=== PATIENT | male | born 1975 | race Asian ===

== ENCOUNTER 2016-12-10 21:17 | Emergency (ER) | payer OTHER ==
[~2016-12-10 21:17] MED LIST: AMOXIL 875 MG875 MG PO; CYCLOBENZAPRINE10 M1 PO; FLEXERIL10 MG PO; IBUPROFEN800 M1 PO; MOTRIN 600 MG600 MG PO; TESSALON PERLE100 MG PO
[2016-12-10 21:23] VITALS: BP 151/92
--- NOTE | 2016-12-10 21:36 | ED GENERAL ADULT ---
See Addendum History of Present Illness General Chief Complaint: General Adult Stated Complaint: PT GOT STUCK WITH A NEEDLE IN PT ROOM Source: patient Exam Limitations: no limitations Vital Signs & Intake/Output Vital Signs & Intake/Output Vital Signs Date Time Temp Pulse Resp B/P B/P Pulse O2 O2 Flow FiO2 Mean Ox Delivery Rate 12/10 2122 97.9 88 20 151/92 98 ED Intake and Output 12/11 0000 12/10 1200 Intake Total 0 Output Total Balance 0 Intake, Oral 0 Patient 138 lb Weight Allergies Coded Allergies: NO KNOWN ALLERGIES (12/10/13) Reconcile Medications Emtricitabine/Tenofovir (Truvada 200 MG-300 MG Tablet) 200 MG-300 MG TABLET 1 TAB PO DAILY PEP Ibuprofen 800 MG TABLET 1 TAB PO TID PRN PAIN Metaxalone (Skelaxin) 800 MG TABLET 1 TAB PO BID MUSCLE RELAXER (Reported) Raltegravir Potassium (Isentress) 400 MG TABLET 1 TAB PO BID PEP Triage Note: 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 The patient whos bed the needle was found in was agreeable to be tested. The onset of the symptoms was abrupt, the duration was just today, the severity is significant; as his symptoms required him to come to the emergency department for care. On physical exam he has a puncture wound on his right palm. No other complaints; I discussed postexposure prophylaxis with him and he consented to treatment. Past History Travel History Traveled to [place] past 21 day No Medical History Any Pertinent Medical History? see below for history Neurological: NONE EENT: NONE Cardiovascular: NONE Respiratory: NONE Gastrointestinal: NONE Hepatic: NONE Renal: NONE Musculoskeletal: NONE Psychiatric: NONE Endocrine: NONE Blood Disorders: NONE Cancer(s): NONE Surgical History Surgical History: cholecystectomy Psychosocial History What is your primary language [place] Tobacco Use: Never used Family History Hx Contributory? No Review of Systems Review of Systems Constitutional: Denies: fever. EENTM: Reports: no symptoms. Respiratory: Reports: no symptoms. Cardiovascular: Reports: no symptoms. GI: Reports: no symptoms. Genitourinary: Reports: no symptoms. Musculoskeletal: Reports: no symptoms. Skin: Reports: see HPI. Neurological/Psychological: Reports: no symptoms. Hematologic/Endocrine: Reports: no symptoms. Immunologic/Allergic: Reports: no symptoms. Physical Exam Physical Exam General Appearance: well developed/nourished, alert, awake, anxious, mild distress Head: atraumatic, normal appearance Eyes: Bilateral: normal appearance, PERRL, EOMI. Ears, Nose, Throat: normal ENT inspection Neck: normal inspection, full range of motion Respiratory: normal breath sounds, chest non-tender, no respiratory distress Cardiovascular: regular rate/rhythm Back: normal range of motion Extremities: normal inspection Neurologic/Psych: no motor/sensory deficits, awake, alert, oriented x 3 Skin: intact, punctutre wound right palm Core Measures ACS in differential dx? No CVA/TIA Diagnosis: No Severe Sepsis Present: No Septic Shock Present: No Progress Differential Diagnoses I considered the following diagnoses in my evaluation of the patient: [Puncture wound, foreign body, hepatitis, HIV, tetanus] Plan of Care: Orders Procedure Date/time Status HIV EXPOSURE/NEEDLESTICK 12/10 2232 Active HEPT C ANTIBODY 12/10 2232 Active HEPT B SURFACE ANTIBODY 12/10 2232 Active GAMMA GLUTAMYL TRANSFERASE 12/10 2232 Active COMPREHENSIVE METABOLIC PANEL 12/10 2232 Active CBC WITHOUT DIFFERENTIAL 12/10 2232 Complete TRNSFRASE ASPART AMINO 12/10 2232 Active TRNSFRAS ALANINE AMINO 12/10 2232 Active Laboratory Tests 12/10/16 2240: Anion Gap 14, Estimated GFR > 60, BUN/Creatinine Ratio 14.5, Glucose 97, Calcium 9.6, Total Bilirubin 0.5, GGT 27, AST 20, ALT 30, Alkaline Phosphatase 91, Total Protein 7.9, Albumin 4.8, Globulin 3.1, Albumin/Globulin Ratio 1.5, CBC w Diff NO MAN DIFF REQ, RBC 5.27, MCV 84.4, MCH 27.9, RDW 13.0, MPV 8.3, Gran % 69.7, Lymphocytes % 23.4, Monocytes % 5.0, Eosinophils % 1.5, Basophils % 0.4, Absolute Granulocytes 5.9, Absolute Lymphocytes 2.0, Absolute Monocytes 0.4, Absolute Eosinophils 0.1, Absolute Basophils 0, PUBS MCHC 33.0, Hep Bs Antibody Pending, Hepatitis C Antibody Pending, HIV 1&2 Antibody NONREACTIVE Initial ED EKG: none Departure Departure Disposition: HOME OR SELF CARE Condition: Stable Clinical Impression Primary Impression: Needle stick injury Referrals: CARLI GUTIERREZ,RACHEL Diaz (PCP/Family) Departure Forms: Customer Survey [employer] Employee Acc General Discharge Information Prescriptions: Current Visit Scripts Emtricitabine/Tenofovir (Truvada 200 MG-300 MG Tablet) 1 TAB PO DAILY #30 TAB Raltegravir Potassium (Isentress) 1 TAB PO BID #60 TAB Comments The patient was started on post exposure prophylaxis for HIV. The likely source patient was tested. The patient states that he is up-to-date on his tetanus and hepatitis B immunization to the best of his knowledge. Critical Care Note Critical Care Note Critical Care Time: non-applicable
[2016-12-10] MEDS ORDERED: SKELAXIN800 M1 PO (22:00)
[2016-12-10] MEDS ORDERED: TRUVADA 200 MG1 EACH PO (22:36)
[2016-12-10] MEDS ORDERED: ISENTRESS400 M1 PO (22:36)
[2016-12-10 22:46] LABS: ABSOLUTE BASOPHIL COUNT 0 /CUMM (0.0-0.2); ABSOLUTE EOSINOPHIL COUNT 0.1 /CUMM (0.0-0.7); ABSOLUTE GRANULOCYTE CT 5.9 /CUMM (1.4-6.5); ABSOLUTE MONOCYTE COUNT 0.4 /CUMM (0.10-0.60); BASOPHIL % 0.4 % (0.0-2.0); EOSINOPHIL % 1.5 % (0-5); GRANULOCYTE % 69.7 % (42.2-75.2); HEMATOCRIT 44.5 % (42-52); MEAN CORPUSCULAR HGB 27.9 PG (27.0-31.0); MEAN CORPUSCULAR VOLUME 84.4 FL (80.0-94.0); MEAN PLATELET VOLUME 8.3 FL (7.4-10.4); PLATELET COUNT 262 /CUMM (130-400); RED BLOOD CELL CT 5.27 /CUMM (4.70-6.10); WHITE BLOOD CELL COUNT 8.4 /CUMM (4.8-10.8)
== END 2016-12-10 23:00 ==
LOC: ERH 21:17
PROVIDERS: Emergency Medicine
DX: S61.431A Puncture wound without foreign body of right hand, initial encounter (principal); W46.1XXA Contact with contaminated hypodermic needle, initial encounter; Y93.89 Activity, other specified; Y92.230 Patient room in hospital as the place of occurrence of the external cause
CPT/HCPCS: 86803; 87389